=== PATIENT | female | born 1960 | race Caucasian/White ===

== ENCOUNTER → 2024-01-26 12:01 | Outpatient (REF) | payer OTHER, SELFPAY | LOC: RAD 12:01 | PROVIDERS: ATTENDING PHYSICIAN Nurse Practitioner Adult Health | DX: R10.9 Unspecified abdominal pain (principal); R07.81 Pleurodynia | CPT/HCPCS: 71101 ==

== ENCOUNTER → 2024-04-13 06:42 | Day surgery (SDC) | payer OTHER, SELFPAY | LOC: GI 06:42 | PROVIDERS: ATTENDING PHYSICIAN Internal Medicine Gastroenterology | DX: R12 Heartburn (principal); R13.10 Dysphagia, unspecified; K44.9 Diaphragmatic hernia without obstruction or gangrene; K29.50 Unspecified chronic gastritis without bleeding; K31.7 Polyp of stomach and duodenum | CPT/HCPCS: 43239; 88305; 88342 ==